=== PATIENT | female | born 1945 | race Caucasian/White ===

== ENCOUNTER 2019-04-26 06:57 | Inpatient (IN) ==
--- NOTE | 2019-03-30 16:12 | PAT Medication Instructions ---
Medication Instructions Date of Service March 30, 2019 Home Medications Potassium Otc 1 dose PO QAM 03/30/19 [History Confirmed 03/30/19] Vitamin D3 1 dose PO QAM 03/30/19 [History Confirmed 03/30/19] buspirone 10 mg PO BID 03/30/19 [History Confirmed 03/30/19] celecoxib [Celebrex] 100 mg PO QAM 03/30/19 [History Confirmed 03/30/19] dicyclomine 20 mg PO BID 03/30/19 [History Confirmed 03/30/19] guaifenesin [Mucinex] 600 mg PO Q12H PRN 03/30/19 [History Confirmed 03/30/19] hydroxychloroquine 200 mg PO BID 03/30/19 [History Confirmed 03/30/19] levothyroxine 100 mcg PO QAM 03/30/19 [History Confirmed 03/30/19] losartan 25 mg PO QAM 03/30/19 [History Confirmed 03/30/19] melatonin 5 mg PO HS 03/30/19 [History Confirmed 03/30/19] pantoprazole [Protonix] 40 mg PO QAM 03/30/19 [History Confirmed 03/30/19] prochlorperazine maleate [Compazine] 5 mg PO TID PRN 03/30/19 [History Confirmed 03/30/19] ropinirole 0.5 mg PO HS 03/30/19 [History Confirmed 03/30/19] ropinirole 1 mg PO HS 03/30/19 [History Confirmed 03/30/19] sumatriptan succinate 100 mg PO UD PRN 03/30/19 [History Confirmed 03/30/19] vitamin B complex 1 tab PO QAM 03/30/19 [History Confirmed 03/30/19] ASK your surgeon for instructions celecoxib [Celebrex] 100 mg PO QAM 03/30/19 [History Confirmed 03/30/19] ASK your prescriber and surgeon hydroxychloroquine 200 mg PO BID 03/30/19 [History Confirmed 03/30/19] STOP taking 24 hours before surgery ropinirole 0.5 mg PO HS 03/30/19 [History Confirmed 03/30/19] ropinirole 1 mg PO HS 03/30/19 [History Confirmed 03/30/19] DO NOT take the morning of surgery Potassium Otc 1 dose PO QAM 03/30/19 [History Confirmed 03/30/19] Vitamin D3 1 dose PO QAM 03/30/19 [History Confirmed 03/30/19] dicyclomine 20 mg PO BID 03/30/19 [History Confirmed 03/30/19] guaifenesin [Mucinex] 600 mg PO Q12H PRN 03/30/19 [History Confirmed 03/30/19] losartan 25 mg PO QAM 03/30/19 [History Confirmed 03/30/19] vitamin B complex 1 tab PO QAM 03/30/19 [History Confirmed 03/30/19] Take morning of surgery With a small sip of water, OTHERWISE NOTHING TO EAT OR DRINK AFTER MIDNIGHT: buspirone 10 mg PO BID 03/30/19 [History Confirmed 03/30/19] levothyroxine 100 mcg PO QAM 03/30/19 [History Confirmed 03/30/19] pantoprazole [Protonix] 40 mg PO QAM 03/30/19 [History Confirmed 03/30/19] prochlorperazine maleate [Compazine] 5 mg PO TID PRN (if needed) sumatriptan succinate 100 mg PO UD PRN (if needed) Take evening before surgery buspirone 10 mg PO BID 03/30/19 [History Confirmed 03/30/19] dicyclomine 20 mg PO BID 03/30/19 [History Confirmed 03/30/19] guaifenesin [Mucinex] 600 mg PO Q12H PRN (if needed) melatonin 5 mg PO HS 03/30/19 [History Confirmed 03/30/19] prochlorperazine maleate [Compazine] 5 mg PO TID PRN (if needed) sumatriptan succinate 100 mg PO UD PRN (if needed) Other Notes If you have any questions please call us at [phone] or [phone] or [phone] or [phone]
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
--- NOTE | 2019-03-31 11:34 | XRay Report ---
XR cervical spine 2 or 3V CLINICAL HISTORY: 73 years-old Female presenting with RHEUMATOID ARTHRITIS. TECHNIQUE: Lateral neutral, lateral flexion, and lateral extension views of the cervical spine were o btained. COMPARISON: None. FINDINGS: The patient is edentulous. Normal to slightly exaggerated cervical lordosis on neutral positioning. T race anterolisthesis of C4 on C5. Vertebral bodies otherwise maintain normal height and alignment. Mi ld to moderate intervertebral disc height loss at C5-6, where there is a disc osteophyte complex with mild posterior bony spurring. Mild facet arthropathy evident in the upper cervical spine. No radiogr aphic evidence of fracture. Normal predental interval with mild degenerative changes of the atlantode ntal articulation. No prevertebral soft tissue swelling. Shoulder arthroplasty noted. On flexion positioning, expected straightening of cervical lordosis. Persistent grade 1 anterolisthes is of C4 on C5, which may be increased by 1 mm. No widening of the predental interval. On extension positioning, exaggerated cervical lordosis. Loss of anterolisthesis of C4 on C5. Normal predental interval. IMPRESSION: 1. Mild dynamic subluxation at C4-5 with slightly exaggerated grade 1 anterolisthesis of C4 on C5 wi th flexion and resolution of anterolisthesis with extension. 2. No other malalignment. No widening of the predental interval. 3. Mild focal degenerative changes at C5-6 and mild upper cervical spine facet arthropathy. 4. No radiographic evidence of fracture. ACT 112: Negative or not required by law. Electronically signed by: Fareed Tamayo M.D. 03/31/2019 11:33 AM
--- NOTE | 2019-03-31 11:35 | XRay Report ---
XR chest Pre-admission PA/Lat CLINICAL HISTORY: Preoperative chest COMPARISON STUDY: 12/02/2010 FINDINGS: The cardiac and mediastinal contours remain stable. There is a retrocardiac opacity consist ent with a hiatal hernia. There is minor linear scarring/atelectatic changes the right lung base. The re is no failure. There is no lobar consolidation. There are no significant pleural effusions. There are old left-sided rib deformities. There are postsurgical changes of a left shoulder arthroplasty.[ IMPRESSION: No active disease in the chest. ACT 112: Negative or not required by law. Electronically signed by: Buddy Brito M.D. 03/31/2019 11:33 AM
[2019-03-31 11:58] LABS: Basophils # (auto) 0.03 K/uL (0-0.2); Basophils % (auto) 0.5 %; Eosinophils # (auto) 0.28 K/uL (0-0.5); Eosinophils % (auto) 4.7 %; Hematocrit (blood only) 42.1 % (37-47); Hemoglobin 13.8 g/dL (12.0-16.0); Immature Granulocytes # (auto) 0.02 K/uL (0.00-0.02); Immature Granulocytes % (auto) 0.3 %; Lymphocytes # (auto) 1.21 K/uL (1.2-3.4); Lymphocytes % (auto) 20.2 %; Mean Corpuscular Hemoglobin 32.3 pg (25-34); Mean Corpuscular Hgb Conc 32.8 g/dL (32-36); Mean Corpuscular Volume 98.6 fL (80-100); Mean Platelet Volume 9.5 fL (7.4-10.4); Monocytes # (auto) 0.72 K/uL (0.11-0.59); Neutrophils # (auto) 3.73 K/uL (1.4-6.5); Neutrophils % (auto) 62.3 %; Platelet Count 200 K/uL (130-400); RDW Coefficient of Variation 12.5 % (11.5-14.5); Red Blood Count 4.27 M/uL (4.2-5.4); White Blood Count 5.99 K/uL (4.8-10.8)
[2019-03-31 12:12] LABS: Partial Thromboplastin Ratio 0.9; Partial Thromboplastin Time 25.6 Seconds (21.0-31.0); Prothrombin Time 10.3 Seconds (9.0-12.0)
[2019-03-31 12:18] LABS: Albumin Level 3.8 gm/dl (3.4-5.0); BUN Creatinine Ratio 10.1 (10-20); Calcium 9.3 mg/dl (8.5-10.1); Creatinine Clr Calc Pharmacy 56.8 ml/min; Est GFR (African American) 75.6; Est GFR (Non-African American) 65.2
[2019-03-31 12:21] LABS: Appearance Urine Clear (Clear); Bilirubin Urine Negative (Negative); Blood Urine Negative (Negative); Color Urine Yellow; Glucose Urine UA Negative (Negative); Ketones Urine Negative (Negative); Leukocyte Esterase Urine Trace (Negative); Nitrite Urine Negative (Negative); Protein Urine Negative (Negative); Specific Gravity Urine 1.007 (1.000-1.030); Urobilinogen Urine Negative (Negative)
[2019-03-31 12:44] LABS: Estimated Average Glucose 100 mg/dl; Hemoglobin A1C 5.1 % (4.5-5.6)
[2019-03-31 13:11] LABS: Epithelial Cell Urine 0-5 /lpf (0-5)
[2019-03-31 13:12] LABS: Bacteria Urine Negative (Negative); RBC Urine 0-4 /hpf (0-4); WBC Urine 0-5 /hpf (0-5)
--- NOTE | 2019-03-31 17:34 | Electrocardiogram Report ---
Test Reason : Blood Pressure : / mmHG Vent. Rate : 066 BPM Atrial Rate : 066 BPM P-R Int : 228 ms QRS Dur : 076 ms QT Int : 408 ms P-R-T Axes : 058 055 045 degrees QTc Int : 427 ms Sinus rhythm with 1st degree A-V block Otherwise normal ECG When compared with ECG of 02-DEC-2010 14:20, DC interval has increased Confirmed by Figueroa Malhotra ([id number]) on 03/31/2019 5:34:29 PM Referred By: Jose Angel Erazo Confirmed By:Figueroa Malhotra
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
[~2019-04-26 06:57] MED LIST: ACETAMINOPHEN 500 MG TAB PO SCH; BUPIVACAINE 0.5 % 5 MG/1 ML PF 10ML VIAL ONE; CEFAZOLIN 1000MG 1,000 MG/7.5 ML SYR IV SCH; CeleBREX 200 MG CAP PO SCH; FAMOTIDINE 20 MG TAB PO SCH; GABAPENTIN 300 MG CAP PO SCH; LR 500ML BOLUS, THEN 15ML/HR IV SCH; METOCLOPRAMIDE HCL 10 MG TABLET PO SCH; ROPIVACAINE 0.5% 5 MG/ML 30 ML VIAL ONE; ROPIVACAINE 0.5% HCL/PF 150 MG, BUPIVACAINE 0.5% MPF 30 ML, EPINEPHrine 30MG/30ML (OR U... INSTIL SCH; TRANEXAMIC ACID 1,000 MG **IV Intra-op IV SCH; TRANEXAMIC ACID 1,000 MG **IV Pre-op IV SCH; dexAMETHasone 4 MG TAB PO SCH
--- NOTE | 2019-04-26 08:49 | History & Physical Bridge Note ---
Date of Service April 26, 2019 History & Physical Bridge Note I have examined the patient, reviewed the History & Physical and in the interval since the performance of the History & Physical I have noted the following changes of clinical significance: no changes noted
[2019-04-26] MEDS ORDERED: LIDOCAINE HCL 2% 2 ML VIAL/AMP(20MG/ML) INFIL ONE (09:09)
[2019-04-26] MEDS ORDERED: MIDAZOLAM HCL 1 MG/ML 2ML VIAL ONE ×2 (09:09)
[2019-04-26] MEDS ORDERED: PROPOFOL IV EMULSION 10 MG/ML 20 ML VIAL IV ONE (09:09)
[2019-04-26] MEDS ORDERED: ONDANSETRON INJ 2 MG/ML 2 ML VIAL ONE (09:09)
[2019-04-26] MEDS ORDERED: BACITRACIN INJ 50,000 UNIT VIAL ONE ×2 (09:11→09:13)
[2019-04-26] MEDS ORDERED: ORTHO JOINT ANESTHETIC ONE ×2 (09:11→09:13)
[2019-04-26] MEDS ORDERED: ATROPINE SULFATE 0.1 MG/ML 10ML SYR IV PRN (09:46)
[2019-04-26] MEDS ORDERED: ONDANSETRON INJ 2 MG/ML 2 ML VIAL IV PRN ×2 (09:46→13:04)
[2019-04-26] MEDS ORDERED: HYDROmorphone INJ 1 MG/ML SYRINGE IV PRN (09:46)
[2019-04-26] MEDS ORDERED: ePHEDrine sulfate 50 MG/ML AMP IV PRN (09:46)
[2019-04-26] MEDS ORDERED: KETOROLAC 30 MG/ML VIAL IV PRN (09:46)
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
[2019-04-26] MEDS ORDERED: NALOXONE HCL 0.4 MG/1 ML VIAL/CARP IV PRN (13:04)
[2019-04-26] MEDS ORDERED: SUMAtriptan succinate 100 MG TAB PO PRN (13:04)
[2019-04-26] MEDS ORDERED: MAGNESIUM HYDROXIDE SUSP 30 ML UDC PO PRN (13:04)
[2019-04-26] MEDS ORDERED: PROCHLORPERAZINE MALEATE 5 MG TAB PO PRN (13:04)
[2019-04-26] MEDS ORDERED: guaiFENesin 600 MG TABCR PO PRN (13:04)
[2019-04-26] MEDS ORDERED: HYDROmorphone INJ 0.5 MG/0.5 ML SYR IV PRN (13:04)
[2019-04-26] MEDS ORDERED: bisacodyL 10 MG SUPP PR PRN (13:04)
[2019-04-26] MEDS ORDERED: METOCLOPRAMIDE HCL INJ 5 MG/ML 2 ML VIAL IV PRN (13:04)
--- NOTE | 2019-04-26 13:09 | XRay Report ---
TWO VIEWS RIGHT KNEE CLINICAL HISTORY: Postoperative examination. FINDINGS: AP and crosstable lateral portable views of the right knee are obtained. A right knee arthr oplasty is in near anatomic alignment. There has been undersurface remodeling of the patella. No acut e fracture is seen. There are expected postoperative changes around the knee including skin clips, a surgical drain, soft tissue edema, and subcutaneous gas. IMPRESSION: Expected postoperative changes status post right knee arthroplasty. No acute fracture is seen. ACT 112: Negative or not required by law. Electronically signed by: Wojciech Baca M.D. 04/26/2019 1:07 PM
[2019-04-26] MEDS ORDERED: PNEUMOCOCCAL ADMINISTRATION CHARGE ONE (13:13)
[2019-04-26] MEDS ORDERED: PNEUMOCOCCAL POLYSACCHARIDES 25 MCG/0.5 ML VIAL/SYR IM ONE (13:13)
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
--- NOTE | 2019-04-26 14:12 | Anesthesiology Progress Note ---
Date of Service April 26, 2019 Anesthesia Post Procedure Vital Signs Vital Signs: Temp Pulse Pulse Resp BP Pulse Ox 04/26/19 13:51 36.4 C L 76 16 123/70 95 04/26/19 13:24 75 16 124/73 96 04/26/19 12:50 36.7 C 71 16 111/66 94 04/26/19 12:40 36.3 C L 69 17 110/51 L 98 04/26/19 12:30 70 12 114/52 L 99 04/26/19 12:20 72 13 131/53 L 95 04/26/19 12:10 75 13 138/53 L 100 04/26/19 12:00 74 12 129/57 L 100 04/26/19 11:51 36.8 C 86 22 126/46 L 95 04/26/19 08:10 36.7 C 74 18 152/59 H 96 Pain Intensity Right Buttock: Pain Intensity: 0 Transfer of Care Handoff Completed per policy Notes Mental Status: alert / awake / arousable Patient Amnestic to Procedure: Yes Nausea / Vomiting: adequately controlled Pain: adequately controlled Airway Patency, RR, SpO2: stable & adequate BP & HR: stable & adequate Hydration State: stable & adequate Anesthetic Complications: no major complications apparent
[2019-04-26] MEDS: SODIUM CHLORIDE 0.9% 1000ML 1,000 ML IV SCH (14:13)
[2019-04-26] MEDS: ACETAMINOPHEN 500 MG TAB PO SCH ×2 (14:13→22:06)
[2019-04-26] MEDS: KETOROLAC TROMETHAMINE 15 MG/ML VIAL IV SCH ×2 (15:30→22:06)
[2019-04-26] MEDS: OXYCODONE HCL IR 5 MG TAB (IMMEDIATE RELEASE) PO PRN ×2 (15:30→20:09)
[2019-04-26] MEDS: CEFAZOLIN 1000MG 1,000 MG/7.5 ML SYR IV SCH (18:37)
[2019-04-26] MEDS: DICYCLOMINE HCL 20 MG TAB PO SCH (20:18)
[2019-04-26] MEDS: SENNA 8.6 MG TAB PO SCH (20:20)
[2019-04-26] MEDS: ASPIRIN 81 MG ECTAB PO SCH (20:21)
[2019-04-26] MEDS: DOCUSATE SODIUM 100 MG CAP PO SCH (20:21)
[2019-04-26] MEDS ORDERED: NON-FORMULARY MEDICATION (Melatonin 5 MG) PO SCH (21:00)
[2019-04-26] MEDS: ROPINIROLE HCL 1 MG TABLET PO SCH (22:05)
[2019-04-26] MEDS: ROPINIROLE HCL 0.25 MG TABLET PO SCH (22:06)
[2019-04-27] MEDS: OXYCODONE HCL IR 5 MG TAB (IMMEDIATE RELEASE) PO PRN ×5 (00:30→19:58)
[2019-04-27] MEDS: SODIUM CHLORIDE 0.9% 1000ML 1,000 ML IV SCH (00:31)
[2019-04-27] MEDS: CEFAZOLIN 1000MG 1,000 MG/7.5 ML SYR IV SCH (03:35)
[2019-04-27] MEDS: KETOROLAC TROMETHAMINE 15 MG/ML VIAL IV SCH ×2 (03:35→10:55)
[2019-04-27] MEDS: ACETAMINOPHEN 500 MG TAB PO SCH ×3 (05:44→21:33)
[2019-04-27 06:16] LABS: Hematocrit (blood only) 29.9 % (37-47); Hemoglobin 10.2 g/dL (12.0-16.0); Mean Corpuscular Hemoglobin 32.8 pg (25-34); Mean Corpuscular Hgb Conc 34.1 g/dL (32-36); Mean Corpuscular Volume 96.1 fL (80-100); Mean Platelet Volume 8.4 fL (7.4-10.4); Platelet Count 154 K/uL (130-400); RDW Coefficient of Variation 12.2 % (11.5-14.5); RDW Standard Deviation 42.8 fL (36.4-46.3); Red Blood Count 3.11 M/uL (4.2-5.4); White Blood Count 13.88 K/uL (4.8-10.8)
[2019-04-27] MEDS: LEVOTHYROXINE SODIUM 100 MCG TABLET PO SCH (06:33)
[2019-04-27 06:50] LABS: BUN Creatinine Ratio 15.4 (10-20); Calcium 7.9 mg/dl (8.5-10.1); Creatinine Clr Calc Pharmacy 50.8 ml/min; Est GFR (African American) 66.8; Est GFR (Non-African American) 57.6; Potassium 3.9 mmol/L (3.5-5.1)
--- NOTE | 2019-04-27 07:46 | Anesthesiology Progress Note ---
Date of Service April 27, 2019 Anesthesia Post Procedure Vital Signs Vital Signs: Temp Pulse Pulse Pulse Resp BP Pulse Ox 04/27/19 07:30 66 125/68 04/27/19 07:07 36.8 C 70 18 84/47 L 95 04/27/19 03:26 36.7 C 63 18 97/58 L 95 04/26/19 23:48 36.7 C 62 18 100/62 92 04/26/19 19:05 36.8 C 69 16 119/68 94 04/26/19 15:51 36.4 C L 65 16 127/71 96 04/26/19 13:51 36.4 C L 76 16 123/70 95 04/26/19 13:24 75 16 124/73 96 04/26/19 12:50 36.7 C 71 16 111/66 94 04/26/19 12:40 36.3 C L 69 17 110/51 L 98 04/26/19 12:30 70 12 114/52 L 99 04/26/19 12:20 72 13 131/53 L 95 04/26/19 12:10 75 13 138/53 L 100 04/26/19 12:00 74 12 129/57 L 100 04/26/19 11:51 36.8 C 86 22 126/46 L 95 04/26/19 08:10 36.7 C 74 18 152/59 H 96 Pain Intensity Right Buttock: Pain Intensity: 3 Notes Mental Status: alert / awake / arousable Patient Amnestic to Procedure: Yes Nausea / Vomiting: adequately controlled Pain: adequately controlled Airway Patency, RR, SpO2: stable & adequate BP & HR: stable & adequate Hydration State: stable & adequate Neuraxial Anesthesia: was administered and sensory block resolved Anesthetic Complications: no major complications apparent and Pt Satisfied with anesthetic care
[2019-04-27] MEDS: DOCUSATE SODIUM 100 MG CAP PO SCH ×2 (08:30→21:32)
[2019-04-27] MEDS: ASPIRIN 81 MG ECTAB PO SCH ×2 (08:30→21:32)
[2019-04-27] MEDS: VITAMIN B COMPLEX TAB PO SCH (08:30)
[2019-04-27] MEDS: DICYCLOMINE HCL 20 MG TAB PO SCH ×2 (08:30→21:31)
[2019-04-27] MEDS: MULTIVITAMIN TAB PO SCH (08:31)
[2019-04-27] MEDS: LOSARTAN POTASSIUM 25 MG TAB PO SCH (08:33)
[2019-04-27] MEDS ORDERED: Nursing to Pharmacy Communication ONE (08:35)
--- NOTE | 2019-04-27 08:44 | Orthopedic Progress Note ---
Date of Service April 27, 2019 Assessment & Plan (1) Osteoarthritis of right knee: Postop day 1 status post right total knee arthroplasty. Acute blood loss anemia-likely due to surgical loss and dilutional effect. PT/OT protocols. Weightbearing as tolerated. DVT prophylaxis with aspirin twice daily, SCDs, ABIOLA marie. Pain management with IV hydromorphone, p.o. oxycodone, Tylenol, IV Toradol DC planning-patient planning for home health services upon discharge. Admission and Anticipated Discharge Date Admission Date: April 26, 2019 Subjective Postop day 1 Patient currently sitting up in bed eating her breakfast. No complaints this morning. Pain is controlled. Denies any shortness of breath, chest pain, lightheadedness. Nursing relates SBP somewhat low earlier this AM. Currently 113. Pt hoping to go home with Services. Physical Exam Physical Exam: Dressings are clean, dry, intact. Calves are soft nontender. Neurovascular is intact. Toes are mobile. He has good dorsiflexion and plantarflexion of the right foot and ankle. Hemovac drainage was 50 mL's from the previous shift. Results & Data ([facility]) Vital Signs (Past 12 Hours) Vital Signs Temp Pulse Pulse Resp BP Pulse Ox 04/27/19 07:30 66 125/68 04/27/19 07:07 36.8 C 70 18 84/47 L 95 04/27/19 03:26 36.7 C 63 18 97/58 L 95 04/26/19 23:48 36.7 C 62 18 100/62 92 Laboratory Results Laboratory Results WBC 13.88 K/uL (4.8-10.8) H 04/27/19 05:42 RBC 3.11 M/uL (4.2-5.4) L 04/27/19 05:42 Hgb 10.2 g/dL (12.0-16.0) L 04/27/19 05:42 Hct 29.9 % (37-47) L 04/27/19 05:42 MCV 96.1 fL (80-100) 04/27/19 05:42 MCH 32.8 pg (25-34) 04/27/19 05:42 MCHC 34.1 g/dL (32-36) 04/27/19 05:42 RDW Std Deviation 42.8 fL (36.4-46.3) 04/27/19 05:42 RDW Coeff of Taco 12.2 % (11.5-14.5) 04/27/19 05:42 Plt Count 154 K/uL (130-400) 04/27/19 05:42 MPV 8.4 fL (7.4-10.4) 04/27/19 05:42 Immature Gran % (Auto) 0.3 % 03/31/19 11:02 Neut % (Auto) 62.3 % 03/31/19 11:02 Lymph % (Auto) 20.2 % 03/31/19 11:02 Russell % (Auto) 12.0 % 03/31/19 11:02 Eos % (Auto) 4.7 % 03/31/19 11:02 Baso % (Auto) 0.5 % 03/31/19 11:02 Immature Gran # (Auto) 0.02 K/uL (0.00-0.02) 03/31/19 11:02 Neut # (Auto) 3.73 K/uL (1.4-6.5) 03/31/19 11:02 Lymph # (Auto) 1.21 K/uL (1.2-3.4) 03/31/19 11:02 Russell # (Auto) 0.72 K/uL (0.11-0.59) H 03/31/19 11:02 Eos # (Auto) 0.28 K/uL (0-0.5) 03/31/19 11:02 Baso # (Auto) 0.03 K/uL (0-0.2) 03/31/19 11:02 PT 10.3 Seconds (9.0-12.0) 03/31/19 11:02 INR 1.0 (0.9-1.1) 03/31/19 11:02 APTT 25.6 Seconds (21.0-31.0) 03/31/19 11:02 PTT Ratio 0.9 03/31/19 11:02 Sodium 139 mmol/L (136-145) 04/27/19 05:42 Potassium 3.9 mmol/L (3.5-5.1) 04/27/19 05:42 Chloride 110 mmol/L (98-107) H 04/27/19 05:42 Carbon Dioxide 23 mmol/L (21-32) 04/27/19 05:42 Anion Gap 7.0 (3-11) 04/27/19 05:42 BUN 15 mg/dl (7-18) 04/27/19 05:42 Creatinine 0.98 mg/dl (0.6-1.2) 04/27/19 05:42 Est Cr Clr Drug Dosing 50.8 ml/min 04/27/19 05:42 Est GFR ( Amer) 66.8 04/27/19 05:42 Est GFR (Non-Af Amer) 57.6 04/27/19 05:42 BUN/Creatinine Ratio 15.4 (10-20) 04/27/19 05:42 Glucose 116 mg/dl (70-99) H 04/27/19 05:42 Estimat Average Glucose 100 mg/dl 03/31/19 11:02 Hemoglobin A1c 5.1 % (4.5-5.6) 03/31/19 11:02 Calcium 7.9 mg/dl (8.5-10.1) L 04/27/19 05:42 Albumin 3.8 gm/dl (3.4-5.0) 03/31/19 11:02 Urine Color Yellow 03/31/19 Unknown Urine Appearance Clear (Clear) 03/31/19 Unknown Urine pH 6.0 (4.5-7.5) 03/31/19 Unknown Ur Specific [place] 1.007 (1.000-1.030) 03/31/19 Unknown Urine Protein Negative (Negative) 03/31/19 Unknown Urine Glucose (UA) Negative (Negative) 03/31/19 Unknown Urine Ketones Negative (Negative) 03/31/19 Unknown Urine Blood Negative (Negative) 03/31/19 Unknown Urine Nitrite Negative (Negative) 03/31/19 Unknown Urine Bilirubin Negative (Negative) 03/31/19 Unknown Urine Urobilinogen Negative (Negative) 03/31/19 Unknown Ur Leukocyte Esterase Trace (Negative) H 03/31/19 Unknown Urine RBC 0-4 /hpf (0-4) 03/31/19 Unknown Urine WBC 0-5 /hpf (0-5) 03/31/19 Unknown Ur Epithelial Cells 0-5 /lpf (0-5) 03/31/19 Unknown Urine Bacteria Negative (Negative) 03/31/19 Unknown Hepatitis C Ab Screen Neg (Neg) 04/27/19 05:42 Blood Type O Positive 03/31/19 11:02 Antibody Screen NEGATIVE 03/31/19 11:02
[2019-04-27] MEDS ORDERED: CELECOXIB 100 MG CAP PO SCH (09:00)
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
--- NOTE | 2019-04-27 15:25 | Orthopedic Progress Note ---
Date of Service April 27, 2019 Assessment & Plan (1) Sciatica associated with disorder of lumbar spine: add celebrex and rx conservative for now Admission and Anticipated Discharge Date Admission Date: April 26, 2019 Subjective patient having right sciatica and back pain h/o sciatica in past Review of Systems Review of Systems: right leg pain sciatic symptoms Physical Exam Physical Exam: csm intact good circulation dressing dry Results & Data ([facility]) Vital Signs (Past 12 Hours) Vital Signs Temp Pulse Pulse Resp BP Pulse Ox 04/27/19 15:14 36.7 C 72 18 102/64 97 04/27/19 07:30 66 125/68 04/27/19 07:07 36.8 C 70 18 84/47 L 95 04/27/19 03:26 36.7 C 63 18 97/58 L 95
[2019-04-27] MEDS ORDERED: CeleBREX 200 MG CAP PO SCH (15:30)
[2019-04-27] MEDS: PANTOprazole 40 MG TAB PO SCH (17:49)
[2019-04-27] MEDS: ROPINIROLE HCL 1 MG TABLET PO SCH (21:32)
[2019-04-27] MEDS: ROPINIROLE HCL 0.25 MG TABLET PO SCH (21:33)
[2019-04-27] MEDS: SENNA 8.6 MG TAB PO SCH (21:33)
[2019-04-28] MEDS: OXYCODONE HCL IR 5 MG TAB (IMMEDIATE RELEASE) PO PRN ×4 (00:03→13:26)
[2019-04-28] MEDS: ACETAMINOPHEN 500 MG TAB PO SCH ×2 (05:52→13:26)
[2019-04-28] MEDS: LEVOTHYROXINE SODIUM 100 MCG TABLET PO SCH (05:52)
[2019-04-28 06:09] LABS: Hematocrit (blood only) 27.3 % (37-47); Hemoglobin 8.9 g/dL (12.0-16.0); Mean Corpuscular Hemoglobin 32.1 pg (25-34); Mean Corpuscular Hgb Conc 32.6 g/dL (32-36); Mean Corpuscular Volume 98.6 fL (80-100); Mean Platelet Volume 8.3 fL (7.4-10.4); Platelet Count 153 K/uL (130-400); RDW Coefficient of Variation 12.8 % (11.5-14.5); RDW Standard Deviation 45.6 fL (36.4-46.3); Red Blood Count 2.77 M/uL (4.2-5.4); White Blood Count 10.94 K/uL (4.8-10.8)
[2019-04-28 06:42] LABS: BUN Creatinine Ratio 17.7 (10-20); Calcium 8.1 mg/dl (8.5-10.1); Creatinine Clr Calc Pharmacy 53.5 ml/min; Est GFR (African American) 71.2; Est GFR (Non-African American) 61.4; Potassium 3.8 mmol/L (3.5-5.1)
[2019-04-28 06:53] LABS: Thyroid Stimulating Hormone 0.371 uIu/ml (0.300-4.500)
[2019-04-28] MEDS ORDERED: KETOROLAC TROMETHAMINE 15 MG/ML VIAL IV ONE (09:00)
--- NOTE | 2019-04-28 09:01 | Orthopedic Progress Note ---
Date of Service April 28, 2019 Assessment & Plan (1) Osteoarthritis of right knee: Postop day 2 status post right total knee arthroplasty. Acute blood loss anemia-likely due to surgical loss and some dilutional effect. Patient denying any shortness of breath, chest pain or lightheadedness. Continue PT OT protocols. Weightbearing as tolerated. DVT prophylaxis with aspirin twice daily, SCDs. Pain management-continue oxycodone and hydromorphone. Hold Celebrex. Add 1 dose of IV Toradol this morning. DC planning-patient is planning for home health services upon discharge. We will stop by and see how she is doing later today to assess the possibility for discharge to home. Admission and Anticipated Discharge Date Admission Date: April 26, 2019 Subjective Postop day 2 status post right total knee arthroplasty. Patient is sitting up in her chair at the bedside eating breakfast. She states she had somewhat of a rough night with little sleep and having some pain. This morning she feels rough with continued pain in the knee and feeling a little nauseated. She received p.o. pain meds at 8:12 this morning. She took it with food. She is hoping to go home today. We discussed that we would recheck her this morning more towards lunchtime to see how she is doing to decide if she is going go home or not. Physical Exam Physical Exam: Kaitlynn dressing is clean, dry, and intact. Calves are soft nontender. Neurovascular is intact. Toes are mobile. Results & Data ([facility]) Vital Signs (Past 12 Hours) Vital Signs Temp Pulse Pulse Resp BP Pulse Ox 04/28/19 07:46 37.1 C 76 17 102/61 94 04/27/19 23:11 36.6 C 70 18 97/62 L 94 Laboratory Results Laboratory Results WBC 10.94 K/uL (4.8-10.8) H 04/28/19 05:44 RBC 2.77 M/uL (4.2-5.4) L 04/28/19 05:44 Hgb 8.9 g/dL (12.0-16.0) L 04/28/19 05:44 Hct 27.3 % (37-47) L 04/28/19 05:44 MCV 98.6 fL (80-100) 04/28/19 05:44 MCH 32.1 pg (25-34) 04/28/19 05:44 MCHC 32.6 g/dL (32-36) 04/28/19 05:44 RDW Std Deviation 45.6 fL (36.4-46.3) 04/28/19 05:44 RDW Coeff of Taco 12.8 % (11.5-14.5) 04/28/19 05:44 Plt Count 153 K/uL (130-400) 04/28/19 05:44 MPV 8.3 fL (7.4-10.4) 04/28/19 05:44 Immature Gran % (Auto) 0.3 % 03/31/19 11:02 Neut % (Auto) 62.3 % 03/31/19 11:02 Lymph % (Auto) 20.2 % 03/31/19 11:02 [place] % (Auto) 12.0 % 03/31/19 11:02 Eos % (Auto) 4.7 % 03/31/19 11:02 Baso % (Auto) 0.5 % 03/31/19 11:02 Immature Gran # (Auto) 0.02 K/uL (0.00-0.02) 03/31/19 11:02 Neut # (Auto) 3.73 K/uL (1.4-6.5) 03/31/19 11:02 Lymph # (Auto) 1.21 K/uL (1.2-3.4) 03/31/19 11:02 [place] # (Auto) 0.72 K/uL (0.11-0.59) H 03/31/19 11:02 Eos # (Auto) 0.28 K/uL (0-0.5) 03/31/19 11:02 Baso # (Auto) 0.03 K/uL (0-0.2) 03/31/19 11:02 PT 10.3 Seconds (9.0-12.0) 03/31/19 11:02 INR 1.0 (0.9-1.1) 03/31/19 11:02 APTT 25.6 Seconds (21.0-31.0) 03/31/19 11:02 PTT Ratio 0.9 03/31/19 11:02 Sodium 141 mmol/L (136-145) 04/28/19 05:44 Potassium 3.8 mmol/L (3.5-5.1) 04/28/19 05:44 Chloride 111 mmol/L (98-107) H 04/28/19 05:44 Carbon Dioxide 28 mmol/L (21-32) 04/28/19 05:44 Anion Gap 2.0 (3-11) L 04/28/19 05:44 BUN 17 mg/dl (7-18) 04/28/19 05:44 Creatinine 0.93 mg/dl (0.6-1.2) 04/28/19 05:44 Est Cr Clr Drug Dosing 53.5 ml/min 04/28/19 05:44 Est GFR ( Amer) 71.2 04/28/19 05:44 Est GFR (Non-Af Amer) 61.4 04/28/19 05:44 BUN/Creatinine Ratio 17.7 (10-20) 04/28/19 05:44 Glucose 88 mg/dl (70-99) 04/28/19 05:44 Estimat Average Glucose 100 mg/dl 03/31/19 11:02 Hemoglobin A1c 5.1 % (4.5-5.6) 03/31/19 11:02 Calcium 8.1 mg/dl (8.5-10.1) L 04/28/19 05:44 Albumin 3.8 gm/dl (3.4-5.0) 03/31/19 11:02 TSH 0.371 uIu/ml (0.300-4.500) 04/28/19 05:44 Urine Color Yellow 03/31/19 Unknown Urine Appearance Clear (Clear) 03/31/19 Unknown Urine pH 6.0 (4.5-7.5) 03/31/19 Unknown Ur Specific [place] 1.007 (1.000-1.030) 03/31/19 Unknown Urine Protein Negative (Negative) 03/31/19 Unknown Urine Glucose (UA) Negative (Negative) 03/31/19 Unknown Urine Ketones Negative (Negative) 03/31/19 Unknown Urine Blood Negative (Negative) 03/31/19 Unknown Urine Nitrite Negative (Negative) 03/31/19 Unknown Urine Bilirubin Negative (Negative) 03/31/19 Unknown Urine Urobilinogen Negative (Negative) 03/31/19 Unknown Ur Leukocyte Esterase Trace (Negative) H 03/31/19 Unknown Urine RBC 0-4 /hpf (0-4) 03/31/19 Unknown Urine WBC 0-5 /hpf (0-5) 03/31/19 Unknown Ur Epithelial Cells 0-5 /lpf (0-5) 03/31/19 Unknown Urine Bacteria Negative (Negative) 03/31/19 Unknown Hepatitis C Ab Screen Neg (Neg) 04/27/19 05:42 Blood Type O Positive 03/31/19 11:02 Antibody Screen NEGATIVE 03/31/19 11:02
[2019-04-28] MEDS: MULTIVITAMIN TAB PO SCH (09:18)
[2019-04-28] MEDS: ASPIRIN 81 MG ECTAB PO SCH (09:19)
[2019-04-28] MEDS: DICYCLOMINE HCL 20 MG TAB PO SCH (09:19)
[2019-04-28] MEDS: VITAMIN B COMPLEX TAB PO SCH (09:19)
[2019-04-28] MEDS: DOCUSATE SODIUM 100 MG CAP PO SCH (09:19)
[2019-04-28] MEDS: LOSARTAN POTASSIUM 25 MG TAB PO SCH (09:20)
[2019-04-28] MEDS: PANTOprazole 40 MG TAB PO SCH (09:20)
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
--- NOTE | 2019-04-28 13:14 | Electrocardiogram Report ---
Test Reason : Blood Pressure : / mmHG Vent. Rate : 069 BPM Atrial Rate : 069 BPM P-R Int : 000 ms QRS Dur : 084 ms QT Int : 392 ms P-R-T Axes : 000 064 041 degrees QTc Int : 420 ms Sinus rhythm with 1st degree A-V block Abnormal ECG When compared with ECG of 31-MAR-2019 10:57, Nonspecific T wave abnormality now evident in Inferior leads Confirmed by Figueroa Malhotra ([id number]) on 04/28/2019 1:13:48 PM Referred By: Jose Angel Erazo Confirmed By:Figueroa Malhotra
[2019-04-28] MEDS ORDERED: FERROUS SULFATE 325 MG TAB PO SCH (17:00)
[2019-04-28] MEDS ORDERED: PANTOprazole 40 MG TAB PO SCH (21:00)
--- NOTE | 2019-04-29 08:24 | Discharge Summary ---
Date of Service date of admission: April 26, 2019 date of discharge: 04-28-19 Admission HPI Per Admitting Provider Ms Michelle is a 74 year old female who complains of right knee pain, presents for pre-op evaluation prior to a right total knee replacement at [facility]. She presents with pain and stiffness on the right side. She states that the symptoms have been chronic non-traumatic. The symptoms occur constantly and have been fluctuating. Currently the patient states that the symptoms are moderate-severe. The pain is described as aching, dull and sharp. She rates her current pain as 8/10. The symptoms are aggravated by daily activities and walking. She had Left TKA by [facility] in 2010. she uses Celebrex daily for her pain. Principal Diagnosis right knee osteoarthritis Discharge Exam Vital Signs Temp 37.1 C 04/28/19 07:46 Pulse 76 04/28/19 07:46 Resp 17 04/28/19 07:46 BP 102/61 04/28/19 07:46 Pulse Ox 94 04/28/19 07:46 Intake & Output 04/28/19 04/29/19 04/29/19 18:59 06:59 18:59 Intake Total 250 / 250 Balance 250 / 250 Weight 73 kg Intake: Oral 250 / 250 Constitutional WD/WN, vitals as above no acute distress Musculoskeletal right knee: NVDI, calf SNT, negative landen sign. DP palpable, able to wiggle toes/ankle movement without difficulty. Prineo dressing clean dry and intact. expected post-operative bruising noted. Discharge Data Allergies Allergy/AdvReac Type Severity Reaction Status Date / Time Iodinated Contrast Media Allergy Intermediate HIVES Verified 04/26/19 07:36 phenytoin Allergy Unknown HIVES Verified 04/26/19 07:36 Consultations 04/26/19 13:04 Consult Case Management - Discharge Planning Routine Consult Hospitalist Routine 04/26/19 13:48 Consult Health Information Management Routine Procedures Performed Operation Date: 04/26/19 09:55 Actual Procedures p Right Total Knee Arthroplasty(Right) - Jose Angel Erazo DO Ordered Studies 04/26/19 05:00 US - OR guided needle placemen Routine Hospital Course (1) Osteoarthritis of right knee: Postop day 3 status post right total knee arthroplasty. Acute blood loss anemia-likely due to surgical loss and some dilutional effect. Patient denying any shortness of breath, chest pain or lightheadedness. Continue PT OT protocols. Weightbearing as tolerated. DVT prophylaxis with aspirin twice daily, SCDs. Pain management-continue oxycodone and hydromorphone. Hold Celebrex. Add 1 dose of IV Toradol this morning. DC planning-patient is planning for home health services upon discharge. We will stop by and see how she is doing later today to assess the possibility for discharge to home. Total Time Total Time Spent Total Time Spent (In Minutes): 20 Total Time Includes: Examination of the Patient, Discharge Planning and M edication Reconciliation Discharge Plan Discharge Items Patient Disposition: Home - Home Health Services Reason For Visit: Osteoarthritis, Right Knee Discharge Diagnosis: Right Total knee Replacement Activity: Per Instructions section Lifting: Wait until after follow-up appointment Weightbearing: Full weightbearing Weightbearing Comment: As tolerated with walker Non-emergency contact: Surgeon Call non-emergency contact if: you have any medication questions, your pain is not controlled, your temperature is above 101, your wound has increased redness, your wound has increased drainage and your wound pain has increased Follow-up/Referrals: Cristobal Pierre [Primary Care Provider] - 05/09/19 9:45 am (APPT WITH FROY MENESES AT [facility].) Diet: Regular Ambulatory Orders: Complete Blood Count no Diff (Timed) Timeframe: [id number] Location: Determined by Patient Ordered By: Sandi Spain Attending Provider Instructions: ACTIVITY RECOMMENDATIONS: SELF CARE INSTRUCTIONS AFTER TOTAL KNEE REPLACEMENT A. You may need to continue a physical therapy program after discharge from the hospital. There are several options available to you. Your doctor will assist you in selecting the best one for you. 1. An out-patient facility 2 to 3 times a week for therapy or home therapy. 2. Continue working on all exercises taught to you in the hospital. Your goals should be to increase bending of your knee to 90 degrees and beyond and to fully straighten your knee. B. You may progress at your own pace from walking with a walker or crutches to a cane; then to no assistive devices. C. Make walking a part of your daily routine. Be up as much as comfortable with rest periods throughout the day. Rest with leg elevation is very important. Use the ice wrap frequently for the first 3-4 weeks. D. There are no restrictions on activities. You may ride in a car, shop, participate in artist color separation and all social activities. E. Wear the long elastic stockings (ABIOLA hose) 20 hours a day for 2 weeks after surgery. They can be removed several times a day for laundering and for a bath. F. You may shower, no tub baths until cleared by your doctor. SPECIAL CARE INSTRUCTIONS: VERY IMPORTANT TO READ AND REVIEW A. There are a few signs you need to watch for after you are home. Call [facility] if you notice any of the followin. Increased severe knee pain. Some pain is expected especially when you exercise. 2. Increased swelling in your leg or knee; pain or swelling of the calf muscle in either lower leg. 3. Any fluid drainage from the incision. 4. Shortness of breath or chest pain. B. Please call [facility] at if you have any concerns or questions about your operation or recovery. The doctor or his nurse will return your call promptly. C. You must take antibiotics before dental work, bladder, bowel or other surgery. Your doctor will provide you with a permanent care to carry describing this precaution. IMPORTANT: * REMEMBER TO TAKE ASPIRIN, 81 MG, TWICE DAILY FOR 4 WEEKS UNLESS OTHERWISE DIRECTED. THIS IS YOUR BLOOD THINNER. * HIGH RISK PATIENTS MAY BE PRESCRIBED A STRONGER BLOOD THINNER. THIS WILL BE PROVIDED AT DISCHARGE. * CALL IF INCREASED PAIN, REDNESS, DRAINAGE OR FEVER GREATER THAT 101. * WEAR ABIOLA HOSE 20 HOURS PER DAY FOR 2 WEEKS. * KELTON Dressing- This is a large suction dressing covering your incision. This will help pull any excess drainage from the wound and allow your incision to heal properly. You may shower with this if you can keep the unit outside of the shower. If any bleeding or leakage is noted please call your doctor's office. This will remain on your incision for 7 days and then should be removed. This can be done yourself or by the home nursing staff if applicable. The entire unit is disposable once removed. Once removed, keep incision clean and dry. If redness or drainage is noted, please call your surgeon. [phone]. FOLLOW UP VISIT: If appointment is not already scheduled: Please call [facility] to make a follow-up appointment for 2 weeks after your surgery at . Addtl Cylinder Filler Provider Instructions: You have been given a lab slip for a complete blood count on thursday to make sure that your body is mounting an appropriate response to blood loss from surgery. You are also being sent a prescription for iron tablets (ferrous sulfate). You should take these twice daily for the next three weeks. Note, as discussed, this can contribute to some constipation as well as darkening of your stools. If you develop constipation you may use over the counter stool softeners. This may also be a good ideal to use regularly while using pain medications. As you are being sent a prescription for protonix, which you have previously been on as we talked about. You had previously been taking twice daily and then reduced to once daily. Given your increased nausea and use of NSAIDs (anti- inflammatory medications like celebrex/ibuprofen) for pain control, you should continue twice daily for the next two weeks and then may decrease if symptoms controlled and no longer taking those medications. Of note, you should HOLD YOUR LOSARTAN TOMORROW (04/29). and you may resume on 04/30. Please keep all follow up appointments as scheduled. Take care! Pending Studies at Discharge: No Stand-Alone Forms: My [facility] [employer], Smoking Cessation Medications and DC Order Prescriptions: New sennosides [Senokot] 8.6 mg Tablet 17.2 mg PO HS Qty: 30 RF: 0 aspirin [Ecotrin Low Strength] 81 mg Tablet,Delayed Release (Dr/Ec) 81 mg PO BID 30 Days Qty: 60 RF: 0 acetaminophen 500 mg Tablet 1,000 mg PO Q8 14 Days Qty: 84 RF: 0 oxycodone 5 mg Tablet 5 mg PO Q4H MDD 6 tabs PRN (Reason: pain) Qty: 30 RF: 0 cefadroxil 500 mg capsule 500 mg PO BID Qty: 28 RF: 1 ferrous sulfate 325 mg (65 mg iron) Tablet,Delayed Release (Dr/Ec) 325 mg PO BIDM Qty: 60 RF: 0 pantoprazole [Protonix] 40 mg Tablet,Delayed Release (Dr/Ec) 40 mg PO BID 14 Days Qty: 28 RF: 0 Continued ropinirole 1 mg Tablet 1 mg PO HS RF: 0 sumatriptan succinate 100 mg Tablet 100 mg PO UD PRN (Reason: Migraine Headache) RF: 0 prochlorperazine maleate [Compazine] 5 mg Tablet 5 mg PO TID PRN (Reason: Nausea) RF: 0 dicyclomine 20 mg Tablet 20 mg PO BID RF: 0 ropinirole 0.5 mg Tablet 0.5 mg PO HS RF: 0 buspirone 10 mg Tablet 10 mg PO BID RF: 0 losartan 25 mg Tablet 25 mg PO QAM RF: 0 vitamin B complex Tablet 1 tab PO QAM RF: 0 celecoxib [Celebrex] 100 mg Capsule 100 mg PO QAM RF: 0 guaifenesin [Mucinex] 600 mg Tablet Extended Release 12hr 600 mg PO Q12H PRN (Reason: Congestion) RF: 0 Potassium Otc 1 dose PO QAM RF: 0 Vitamin D3 1 dose PO QAM RF: 0 melatonin 5 mg Tablet 5 mg PO HS RF: 0 levothyroxine 100 mcg Tablet 100 mcg PO QAM RF: 0 Discontinued hydroxychloroquine 200 mg Tablet 200 mg PO BID RF: 0 Discharge Orders: Discharge Order (Routine); Ordered 04/28/19 Ordered By: Broderick Woodward Admission Data Admit Date/Time: 04/26/19 12:00 Attending Provider: Jose Angel Erazo Admit Provider: Jose Angel Erazo Primary Care Provider: Cristobal Pierre Other Providers: Jr Barnes ; Sandi Mcnally ; Shirley Carr ; Edwin Schwarz Robert R. ; Jo Hernandez Thomas E. ; Moody Hampton ; Mason Walter ; Cristine Mcghee ; Yvonne Mao ; Kiley Zamudio ; Lloyd Flores ; Fina Casas ; Fantasma Evans ; Zeeshan Lorenzo ; Sandi Qureshi ; Jeremy Leal ; Kasandra Ogden ; Antoine Fontaine ; Danie Jaime Jonathan M. ; Bryon Meléndez ; Alisa Cam ; Kurt Acevedo ; Channing Goddard ; Pearl Maza ; Caden Lynn ; Dao Banda ; Adán Chavarria ; Kedar Webb Other Interventions: Discharge Summary Assessment (RN) Last Done: 04/28/19 13:40 DC Date/Time DO NOT enter until pt leaves facility: 04/28/19 15:35
== END 2019-04-28 15:35 | disposition home health service (06) | DRG 470 ==
LOC: ASU 06:57 → 3E 12:00
DX: F41.9 Anxiety disorder, unspecified; I48.91 Unspecified atrial fibrillation; K58.9 Irritable bowel syndrome, unspecified; Z79.899 Other long term (current) drug therapy; D62 Acute posthemorrhagic anemia; M06.9 Rheumatoid arthritis, unspecified; I12.9 Hypertensive chronic kidney disease with stage 1 through stage 4 chronic kidney disease, or unspecified chronic kidney disease; K21.9 Gastro-esophageal reflux disease without esophagitis; E03.9 Hypothyroidism, unspecified; M79.7 Fibromyalgia; G25.81 Restless legs syndrome; N18.3 Chronic kidney disease, stage 3 (moderate); M17.11 Unilateral primary osteoarthritis, right knee; M54.41 Lumbago with sciatica, right side